=== PATIENT | female | born 1975 | race Caucasian/White ===

== ENCOUNTER → 2021-02-06 | Outpatient (CLI) | payer OTHER | LOC: HEART 5 09:30 | DX: J45.991 Cough variant asthma (principal) | CPT/HCPCS: 94060; 94729 ==

== ENCOUNTER 2021-12-14 16:03 | Emergency (ER) | payer OTHER ==
[2021-12-14 20:04] LABS: HEMOGLOBIN 12.4 gm/dl (12.3-15.3); RED BLOOD COUNT 4.02 M/UL (4.00-5.10)
[2021-12-14 20:28] LABS: BUN/CREATININE RATIO 19 (0-10)
== END 2021-12-14 21:05 | disposition home or self-care (01) ==
LOC: ER1 16:03
PROVIDERS: Physician Assistant
DX: R51.9 Headache, unspecified (principal); R55 Syncope and collapse; E86.0 Dehydration; I10 Essential (primary) hypertension; Z88.0 Allergy status to penicillin; Z90.49 Acquired absence of other specified parts of digestive tract
CPT/HCPCS: 70450; 71045; 80053; 81001; 82550; 82553; 84484; 85025; 87086; 93005; 96374; 96375; 99284; J1885; J2405